=== PATIENT | female | born 1980 | race Caucasian/White ===

== ENCOUNTER 2017-04-12 01:38 | Observation (INO) ==
[2017-04-12] MEDS ORDERED: *HR* HYDROmorphone (PF) 1 MG/ML SYRINGE IVP ONE (02:02)
[2017-04-12] MEDS ORDERED: Ondansetron 4 MG/2 ML VIAL IVP ONE (02:02)
[2017-04-12] MEDS ORDERED: 0.9 % Sodium Chloride 1,000 ML IVC ONE (02:03)
[2017-04-12] MEDS ORDERED: Hyoscyamine 0.5 MG/ML MLS IVP ONE (02:03)
[2017-04-12] MEDS ORDERED: Ketorolac 15 MG/ML VIAL IVP ONE (02:03)
--- NOTE | 2017-04-12 02:07 | Emergency Department Note ---
Disposition Clinical Impression: Ileus, unspecified Abdominal pain Qualifiers: Abdominal location: unspecified location Qualified Code(s): R10.9 - Unspecified abdominal pain Disposition: Admitted As Inpatient Condition: Good Referrals: Ronna Dickens MD [Primary Care Provider] - Forms: ED Satisfaction Letter, Work/School Release Time of Disposition: 05:50 General Adult HPI - General Chief complaint: ED Abdominal Pain Stated complaint: "abd pain into back// Vomiting" Time Seen by Provider: 04/12/17 01:49 Source: patient Limitations: no limitations Nursing Notes Reviewed: Yes Vital Signs Reviewed: Yes - History of Present Illness HPI Narrative: 37 y/o female who reports eating a hamburger late in the evening and then developed sudden onset of RUQ abd pain with nausea. Denies prior history of this. PSH of hysterectomy. Has not vomited. No fever. Takes effexor and a BP medication. Nothing makes the pain better, moving makes it worse. No pain in the other areas of her abdomen. Radiation: non-radiation Pain Severity: severe Pain Scale: 10 Consistency: constant Treatments Prior to Arrival: none - Related Data Home Medications Medication Instructions Recorded Confirmed Atenolol [Tenormin] 50 mg PO DAILY 06/30/15 06/30/15 BuPROPion [Wellbutrin] 06/30/15 Melatonin [Melatonin] 06/30/15 Methocarbamol [Robaxin] 500 mg PO 06/30/15 06/30/15 Venlafaxine [Effexor] 110 mg PO 06/30/15 Previous Rx's Medication Instructions Recorded Albuterol Sulfate [Albuterol 2 puff IH Q4HR PRN #1 [id number] 12/18/15 Inhaler] Allergies Allergy/AdvReac Type Severity Reaction Status Date / Time levofloxacin [From Levaquin] Allergy Swelling Verified 04/12/17 01:48 of Lip/Tongue/Throat prochlorperazine Allergy See Verified 04/12/17 01:48 [From Compazine] Comments Sulfa (Sulfonamide Allergy Rash Verified 04/12/17 01:48 Antibiotics) All systems ED: reviewed and negative except as stated. Constitutional: Denies: fever ENT ED: Denies: throat pain Cardiovascular: Denies: chest pain Respiratory: Denies: cough Gastrointestinal: Reports: abdominal pain, nausea. Denies: vomiting, diarrhea Musculoskeletal: Denies: back pain Integumentary: Denies: rash Past Medical History - Past Medical History Medical history: Reports: no medical history Psychiatric history: Reports: no psych history - Social History Smoking Status: Never smoker Smokeless Tobacco Status: No Alcohol use: Reports: none Drug use: Reports: none Physical Exam - General Limitations: no limitations General appearance: alert - Head Head exam: atraumatic - Eye Eye exam: Present: normal appearance, PERRL - ENT ENT exam: normal exam - Neck Neck exam: Present: normal inspection - Chest Chest inspection: Present: normal inspection - Respiratory Respiratory exam: Present: normal lung sounds bilaterally - Cardiovascular Cardiovascular exam: Present: regular rate, normal rhythm - Abdominal Exam Abdominal exam: Present: soft, tenderness (RUQ only. Positive murphys sign.) - Extremities Exam Extremities exam: Present: normal inspection - Neurological Exam Neurological exam: Present: alert, oriented X3 - Psychiatric Psychiatric exam: Present: normal affect, normal mood Course Course Narrative: CT shows localized ileus. Leukocytosis is present. Pain improved but is still present after medications. No current vomiting. Negative gallbladder U/S and no LFT elevation or bili elevation. I called and spoke with Dr Daily who advised NPO with IVF and to give him a call if no improvement in [address] Garza who accepts the patient. Vital Signs Temperature 97.6 F 04/12/17 01:45 Pulse Rate 106 04/12/17 01:45 Respiratory Rate 20 04/12/17 01:45 Blood Pressure 123/87 04/12/17 01:45 O2 Sat by Pulse Oximetry 100 04/12/17 01:45 Temperature 97.6 F 04/12/17 01:45 Pulse Rate 106 04/12/17 01:45 Respiratory Rate 20 04/12/17 01:45 Blood Pressure 123/87 04/12/17 01:45 O2 Sat by Pulse Oximetry 100 04/12/17 01:45 Oxygen Delivery Oxygen Delivery Room Air Medical Decision Making - Medical Records Medical records reviewed: Yes I reviewed the patient's medical records. - Lab Data Lab results reviewed: Yes I reviewed the patient's lab results. Result diagrams: 04/12/17 01:58 04/12/17 01:58 Lab Results 04/12/17 04/12/17 04/12/17 Range/Units 01:58 01:58 01:58 WBC 19.7 H (4.3-11.1) K/mcL RBC 5.33 H (3.82-4.97) M/mcL Hgb 13.9 (11.5-15.4) g/dL Hct 43.8 (35.3-44.9) % MCV 82.2 L (83.0-100.0) fL MCH 26.1 L (28.0-33.3) pg MCHC 31.7 (31.6-35.5) g/dL RDW 14.0 (11.5-14.5) % Plt Count 335 (140-400) K/mcL MPV 10.2 (9.4-12.4) fL Immature Gran % 0.9 (0-4) % Seg Neutrophils % 76.9 % Lymphocytes % 16.7 % Monocytes % 4.3 % Eosinophils % 0.7 % Basophils % 0.5 % Neutrophils # 15.2 H (1.6-8.9) K/mcL Lymphocytes # 3.3 (0.6-4.6) K/mcL Monocytes # 0.9 (0.0-1.3) K/mcL Eosinophils # 0.1 (0.0-0.6) K/mcL Basophils # 0.1 (0.0-0.2) K/mcL Sodium (136-145) mEq/L Potassium (3.5-5.1) mEq/L Chloride (98-107) mEq/L Carbon Dioxide (23-29) mEq/L BUN (6-20) mg/dL Creatinine (0.60-1.20) mg/dL Est GFR ( Amer) (> 60) Est GFR (Non-Af Amer) (> 60) BUN/Creatinine Ratio (6-26) Glucose (70-105) mg/dL Calculated Osmolality (280-300) Calcium (8.6-10.3) mg/dL Total Bilirubin (0.3-1.0) mg/dL Direct Bilirubin (0.0-0.2) mg/dL Indirect Bilirubin (0.0-1.2) mg/dL AST (13-39) Units/L ALT (7-52) Units/L Alkaline Phosphatase (34-104) Units/L Serum Total Protein (6.4-8.9) g/dL Albumin (3.5-5.7) g/dL Globulin (2.4-3.5) g/dL Albumin/Globulin Ratio (1.1-2.2) Lipase (11-82) Units/L Urine Color Yellow (Yellow) Urine Clarity Clear (Clear) Urine pH 6.0 (5.0-8.0) pH Units Ur Specific [place] > 1.030 H (1.010-1.025) Urine Protein Negative (Neg-Trace) mg/dL Urine Glucose (UA) Normal (Normal) mg/dL Urine Ketones Negative (Negative) mg/dL Urine Blood Negative (Negative) Urine Nitrite Negative (Negative) Urine Bilirubin Negative (Negative) Urine Urobilinogen Normal (Normal) mg/dL Ur Leukocyte Esterase Negative (Negative) Ur Culture Indicated? NO (NO) Urine Test Negative (Negative) 04/12/17 Range/Units 01:58 WBC (4.3-11.1) K/mcL RBC (3.82-4.97) M/mcL Hgb (11.5-15.4) g/dL Hct (35.3-44.9) % MCV (83.0-100.0) fL MCH (28.0-33.3) pg MCHC (31.6-35.5) g/dL RDW (11.5-14.5) % Plt Count (140-400) K/mcL MPV (9.4-12.4) fL Immature Gran % (0-4) % Seg Neutrophils % % Lymphocytes % % Monocytes % % Eosinophils % % Basophils % % Neutrophils # (1.6-8.9) K/mcL Lymphocytes # (0.6-4.6) K/mcL Monocytes # (0.0-1.3) K/mcL Eosinophils # (0.0-0.6) K/mcL Basophils # (0.0-0.2) K/mcL Sodium 135 L (136-145) mEq/L Potassium 4.0 (3.5-5.1) mEq/L Chloride 101 (98-107) mEq/L Carbon Dioxide 25 (23-29) mEq/L BUN 18 (6-20) mg/dL Creatinine 0.81 (0.60-1.20) mg/dL Est GFR ( Amer) > 60 (> 60) Est GFR (Non-Af Amer) > 60 (> 60) BUN/Creatinine Ratio 22 (6-26) Glucose 148 H (70-105) mg/dL Calculated Osmolality 285 (280-300) Calcium 9.9 (8.6-10.3) mg/dL Total Bilirubin 0.2 L (0.3-1.0) mg/dL Direct Bilirubin 0.1 (0.0-0.2) mg/dL Indirect Bilirubin 0.1 (0.0-1.2) mg/dL AST 15 (13-39) Units/L ALT 24 (7-52) Units/L Alkaline Phosphatase 74 (34-104) Units/L Serum Total Protein 7.4 (6.4-8.9) g/dL Albumin 4.7 (3.5-5.7) g/dL Globulin 2.7 (2.4-3.5) g/dL Albumin/Globulin Ratio 1.7 (1.1-2.2) Lipase 19 (11-82) Units/L Urine Color (Yellow) Urine Clarity (Clear) Urine pH (5.0-8.0) pH Units Ur Specific [place] (1.010-1.025) Urine Protein (Neg-Trace) mg/dL Urine Glucose (UA) (Normal) mg/dL Urine Ketones (Negative) mg/dL Urine Blood (Negative) Urine Nitrite (Negative) Urine Bilirubin (Negative) Urine Urobilinogen (Normal) mg/dL Ur Leukocyte Esterase (Negative) Ur Culture Indicated? (NO) Urine Test (Negative) - Radiology Data Radiology results reviewed: Yes I reviewed the patient's radiology results. Attestation Statement - Attestation Attestation: I, Wilder Vickers DO, examined this patient [id number] and my medical decision-making was reviewed with Dr. Pranav Alcala, Resident Physician. I agree with the documented findings, disposition and treatment plan as described except to the extent set forth below. Please see my progress notes for details. 37-year-old female presents emergency room with acute onset of right upper quadrant abdominal pain just after eating a hamburger. Patient denies any other trauma or injury. She has no history of gallbladder related disease or illness. She has a family member was had gallbladder problems in the past as well. Patient denies any fevers or chills chest pain shortness of breath headache vision changes. She has had nausea and vomiting since the onset of the symptoms. Denies any diarrhea. Patient has never had any like this before. She has had a total hysterectomy in her abdomen but has not otherwise had no other symptoms. Vital signs are stable on presentation. Patient does appear to be in some moderate distress. Lungs are clear heart is regular. Patient has reproducible right upper quadrant tenderness to palpation. She has no tenderness in the left upper quadrant and bilateral lower quadrants of the abdomen. There is no guarding or rigidity no peritoneal like symptoms at this time. Patient will have ultrasound completed. Bedside ultrasound does not show any acute signs of free fluid or inflammation of the gallbladder this point. Definitive imaging modality will be resulted. Symptomatic control started this time of pain medication. Disposition will be determined. See detailed documentation of the physical exam, medical intervention, medical decision-making and disposition of the resident physician's note. Note critical care applied to this patient's treatment course. 0500 Patient found to have an ileus versus early small bowel obstruction. Consultation placed to the on-call surgeon. Recommended hospitalist admission. Patient is otherwise clinically stable. Will be admitted for symptomatic control and observation.
[2017-04-12 02:10] LABS: Bilirubin,Urine Negative (Negative); Blood,Urine Negative (Negative); Clarity,Urine Clear (Clear); Color,Urine Yellow (Yellow); Glucose,Urine (UA) Normal (Normal); Ketones,Urine Negative (Negative); Leukocyte Esterase,Urine Negative (Negative); Nitrite,Urine Negative (Negative); Protein,Urine Negative (Neg-Trace); Specific Gravity,Urine > 1.030 (1.010-1.025); Urobilinogen,Urine Normal (Normal)
[2017-04-12 02:12] LABS: Basophils # 0.1 K/mcL (0.0-0.2); Basophils % 0.5 %; Eosinophils # 0.1 K/mcL (0.0-0.6); Eosinophils % 0.7 %; Hematocrit 43.8 % (35.3-44.9); Hemoglobin 13.9 g/dL (11.5-15.4); Immature Granulocytes % 0.9 % (0-4); Lymphocytes # 3.3 K/mcL (0.6-4.6); Lymphocytes % 16.7 %; Mean Corpuscular HGB Conc 31.7 g/dL (31.6-35.5); Mean Corpuscular Hemoglobin 26.1 pg (28.0-33.3); Mean Corpuscular Volume 82.2 fL (83.0-100.0); Mean Platelet Volume 10.2 fL (9.4-12.4); Monocytes # 0.9 K/mcL (0.0-1.3); Monocytes % 4.3 %; Neutrophils # 15.2 K/mcL (1.6-8.9); Platelet Count 335 K/mcL (140-400); Red Blood Count 5.33 M/mcL (3.82-4.97); Segmented Neutrophils % 76.9 %
[2017-04-12] MEDS ORDERED: *HR* FentaNYL (PF) 100 MCG/2 ML VIAL IVP ONE ×2 (02:14→05:10)
[2017-04-12 02:30] LABS: Alanine Aminotransferase 24 Units/L (7-52); Albumin 4.7 g/dL (3.5-5.7); Albumin/Globulin Ratio 1.7 (1.1-2.2); Alkaline Phosphatase 74 Units/L (34-104); Aspartate Amino Transferase 15 Units/L (13-39); BUN/Creatinine Ratio 22 (6-26); Bilirubin,Direct 0.1 mg/dL (0.0-0.2); Bilirubin,Indirect 0.1 mg/dL (0.0-1.2); Bilirubin,Total 0.2 mg/dL (0.3-1.0); Blood Urea Nitrogen 18 mg/dL (6-20); Calcium 9.9 mg/dL (8.6-10.3); Carbon Dioxide 25 mEq/L (23-29); Chloride 101 mEq/L (98-107); Globulin 2.7 g/dL (2.4-3.5); Glucose 148 mg/dL (70-105); Lipase 19 Units/L (11-82); Osmolality,Calculated 285 (280-300); Sodium 135 mEq/L (136-145); Total Protein 7.4 g/dL (6.4-8.9); eGFR For African Americans > 60 (> 60); eGFR For Non-African Americans > 60 (> 60)
[2017-04-12] MEDS ORDERED: 0.9 % Sodium Chloride 1,000 ML IVC SCH (05:45)
[2017-04-12] MEDS ORDERED: Naloxone 0.4 MG/ML INJ IVP PRN (07:43)
[2017-04-12] MEDS ORDERED: *HR* HYDROcodone/Acet 5/325 mg TABLET PO PRN (07:43)
[2017-04-12] MEDS ORDERED: Ondansetron 4 MG/2 ML VIAL ONE (07:50)
[2017-04-12] MEDS: Ondansetron 4 MG/2 ML VIAL IVP PRN ×3 (08:02→22:55)
[2017-04-12] MEDS: *HR* Promethazine 25 MG/ML VIAL IVP PRN ×3 (08:04→23:50)
[2017-04-12] MEDS: 0.9 % Sodium Chloride 1,000 ML IVC SCH ×3 (08:06→22:55)
--- NOTE | 2017-04-12 10:01 | Internal Med History&Physical ---
Date of Encounter: 04/12/17 Time of Encounter: 08:00 Assessment and Plan (1) SBO (small bowel obstruction) Current visit: Yes Status: Acute Place the pt into Med Surg for observation Reviwed CT of abd showed partial SBO vs Ileus NPO for now IV hydration Surgery consulted No need of NG tube at this point continue symptomatic and supportive care Reviewed Labs - Normal LFT's and Lipase (2) Ileus, unspecified Current visit: Yes Status: Acute (3) Abdominal pain Current visit: Yes Status: Acute Qualifiers: Abdominal location: periumbilical Qualified Code(s): R10.33 - Periumbilical pain (4) Intractable nausea and vomiting Current visit: Yes Status: Acute Continue symptomatic and supportive care Qualifiers: Vomiting type: unspecified Qualified Code(s): R11.2 - Nausea with vomiting , unspecified (5) Anxiety Current visit: Yes Status: Acute Resumed home meds (6) HTN (hypertension) Current visit: Yes Status: Acute hold PO meds will give IV Hdyralazine if SBP > 160 Qualifiers: Hypertension type: essential hypertension Qualified Code(s): I10 - Essential (primary) hypertension Internal Medicine - H&P: HPI Chief complaint: Abdominal pain and N/V Admitted From: Emergency Dept Plans for Post Hospital Care: Home History of present illness: Ms. Leon is a 37 year old female with known Anxiety and HTN pt who presented to ER with genesis umbelical abdominal pain associated with intractable nausea and vomiting started y/d. She denied any sick contacts at home. She denied eating any unusual food / food poisoning. She denied any constipation diarrhea. Had multiple non bilious vomiting last night. Still feel nauseated. Her CT of Abd showed ileus and partial SBO. Her abdominal pain is located periumbelical region and radiating to her mid back. Past Med Surg Social Fam HX - Past Medical History Medical history: no medical history Psychiatric history: no psych history - Past Surgical History Surgical History: hysterectomy - Social History Smoking Status: Never smoker Smokeless Tobacco Status: No Alcohol use: none Drug use: none - Family History Father Living Status: Still Living Hx Family Cancer: Yes (thyroid) Maternal Hx Family GI Disorders: Yes (Aunt have pancreatic cancer) Internal Medicine - H&P: Meds Atenolol [Tenormin] 50 mg PO DAILY 06/30/15 [History] Methocarbamol [Robaxin] 500 mg PO DAILY 06/30/15 [History] BuPROPion XL (24 HR) [Wellbutrin XL] 150 mg PO DAILY 04/12/17 [History] Venlafaxine XR (24 HR) [Effexor XR] 37.5 mg PO DAILY 04/12/17 [History] Venlafaxine XR (24 HR) [Effexor XR] 75 mg PO DAILY 04/12/17 [History] 3 Allergy/AdvReac Type Severity Reaction Status Date / Time levofloxacin [From Levaquin] Allergy Swelling Verified 04/12/17 01:48 of Lip/Tongue/Throat prochlorperazine Allergy See Verified 04/12/17 01:48 [From Compazine] Comments Sulfa (Sulfonamide Allergy Rash Verified 04/12/17 01:48 Antibiotics) All Systems PM: A 10-system review of systems was performed and is negative for pertinent findings except as documented above in the HPI. Review of systems: All the systems are reviewed everything is benign except the systems and symptoms I mentioned in the history of present illness - Constitutional Vitals: Temp Pulse Resp BP Pulse Ox 97.6 F 80 16 111/59 98 04/12/17 01:45 04/12/17 08:40 04/12/17 08:40 04/12/17 08:40 04/12/17 06:30 General appearance: Present: mild distress (with abdominal buddy), A&O X 3, answers questions appropriately - Head Head exam: Present: atraumatic, normal inspection - Neck Neck exam general surgery: Present: supple - Respiratory Respiratory exam: Present: decreased breath sounds. Absent: rales, respiratory distress, rhonchi, wheezes - Cardiovascular Cardiovascular exam: Present: RRR, +S1, +S2. Absent: tachycardia - GI/Abdominal GI/Abdominal exam: Present: normal bowel sounds, soft, tenderness (epigastric and genesis umbelical abdominal pain). Absent: rebound, rigid - Extremities Exam Extremities exam: Absent: calf tenderness, pedal edema, tenderness - Back Exam Back exam: Absent: CVA tenderness (L), CVA tenderness (R) - Neurological Exam Neurological exam: Present: alert, oriented X3 - Psychiatric Psychiatric exam: Present: normal affect, normal mood - Skin Skin exam: Absent: rash Internal Med - H&P Results - Labs CBC & Chem 7: 04/12/17 01:58 04/12/17 01:58
[2017-04-12] MEDS: Pantoprazole 40 MG VIAL IVP SCH (11:17)
[2017-04-12] MEDS: *HR* FentaNYL (PF) 100 MCG/2 ML VIAL IVP PRN ×3 (11:17→23:50)
--- NOTE | 2017-04-12 11:25 | General Surgery Consult Note ---
<Kylie Ball Neal - Last Filed: 04/12/17 11:22> Date of Encounter: 04/12/17 Time of Encounter: 10:45 Assessment and Plan (2) Abdominal pain Current Visit: Yes Status: Acute Unclear etiology at this point NPO IV fluids- 125ml/hour Check HIDA scan to further investigate for biliary dyskinesia Supportive care and pain control GI/DVT prophylaxis Ambulate hallways TID Incentive Spirometer every 1 hour while awake Serial abdominal exams Repeat am labs Surgery will continue to follow to assess progress and make recommendations Qualifiers: Abdominal location: periumbilical Qualified Code(s): R10.33 - Periumbilical pain (3) Intractable nausea and vomiting Current Visit: Yes Status: Acute Unclear etiology at this point NPO Agree with no NG tube at this time IV fluids- 125ml/hour Check HIDA scan to further investigate for biliary dyskinesia Supportive care and pain control GI/DVT prophylaxis Ambulate hallways TID Incentive Spirometer every 1 hour while awake Serial abdominal exams Repeat am labs Qualifiers: Vomiting type: unspecified Qualified Code(s): R11.2 - Nausea with vomiting , unspecified (4) Anxiety Current Visit: Yes Status: Chronic Management per hospitalist Continue home medication regimen (5) HTN (hypertension) Current Visit: Yes Status: Chronic Management per hospitalist Continue home medication regimen Qualifiers: Hypertension type: essential hypertension Qualified Code(s): I10 - Essential (primary) hypertension (6) DVT prophylaxis Current Visit: Yes Status: Acute Ambulate hallways 3 times a day EPCDs to bilateral lower extremities for DVT prophylaxis History of Present Illness Consult date: 04/12/17 Reason for consult: abdominal pain Requesting physician: Kurtis Peters History of present illness: Mrs. Leon is a 37 year old female with a past medical history significant for hypertension, obesity, anxiety, GERD. She presents to the emergency department after having sudden onset of epigastric and right upper quadrant abdominal pain which started last evening. She states that the pain was severe and constant and was followed by multiple episodes of nausea and vomiting. She has never experienced pain like this in the past. She did attempt to take Mylanta but states that this did not help. She states that the pain is much better at this point. She denies any hematemesis or coffee-ground emesis. She states that her last bowel movement was at 10 PM last evening. She denies any diarrhea or constipation. She denies any melena or hematochezia. She typically has a bowel movement every 2-3 days. She denies any recent sick contacts. She denies any fevers or chills. Denies any shortness of breath or chest pain. She denies any difficulty with urination. She has had a CAT scan evaluation and ultrasound the gallbladder complete. We have been asked to see and evaluate the patient for further recommendations. Past Med Surg Social Fam HX - Past Medical History Source: patient, old records reviewed Medical history: GERD, hypertension Psychiatric history: anxiety - Past Surgical History Surgical History: hysterectomy (with single oopherectomy), other ([place] teeth extraction) - Social History Smoking Status: Never smoker Smokeless Tobacco Status: No Alcohol use: none Drug use: none Current living situation: Home - Independent Activity Level: Independent ambulation - Family History Father Living Status: Still Living Hx Family Cancer: Yes (skin) Hx Family Endocrine Disorder: Yes (Diabetes Mellitus) Maternal Living Status: Cause of : Pancreatic cancer Hx Family Cancer: Yes (Maternal Aunt hx of pancreatic CA ( in her 40's)) Mother Living Status: Still Living Hx Family Cancer: Yes (Thyroid cancer) Paternal Living Status: Cause of : Colon cancer Hx Family Cancer: Yes (Colon cancer) Daughter Hx Family Respiratory Disorders: Yes (Asthma, Sleep apnea) Hx Family Neurologic Disorders: Yes (Arnold Chiari Malformation) Medications and Allergies Atenolol [Tenormin] 50 mg PO DAILY 06/30/15 [History] Methocarbamol [Robaxin] 500 mg PO DAILY 06/30/15 [History] BuPROPion XL (24 HR) [Wellbutrin XL] 150 mg PO DAILY 04/12/17 [History] Venlafaxine XR (24 HR) [Effexor XR] 37.5 mg PO DAILY 04/12/17 [History] Venlafaxine XR (24 HR) [Effexor XR] 75 mg PO DAILY 04/12/17 [History] 3 Allergy/AdvReac Type Severity Reaction Status Date / Time levofloxacin [From Levaquin] Allergy Swelling Verified 04/12/17 01:48 of Lip/Tongue/Throat prochlorperazine Allergy See Verified 04/12/17 01:48 [From Compazine] Comments Sulfa (Sulfonamide Allergy Rash Verified 04/12/17 01:48 Antibiotics) Review of Systems All systems PM: reviewed and no additional remarkable complaints except as stated (in the HPI) All systems PM: The remainder of the systems were reviewed and are negative General Surgery Exam Initial Vital Signs Temp Pulse Resp BP Pulse Ox 97.6 F 106 20 123/87 100 04/12/17 01:45 04/12/17 01:45 04/12/17 01:45 04/12/17 01:45 04/12/17 01:45 - General physical appearance well developed, well nourished, no distress - Eyes normal ocular movement - ENT normal mucosa, atraumatic, normocephalic - Neck trachea midline - Respiratory normal respiratory effort, clear to auscultation - Cardiovascular Cardiovascular exam: Present: RRR - Abdomen Abdomen general surgery: Present: bowel sounds present, soft, tender Abdominal Tenderness: Present: epigastic, RUQ - Integumentary Integumentary general surgery: Present: warm and dry - Neurologic Present: CN 2-12 grossly intact - Musculoskeletal Present: normal gait, normal posture - Psychiatric Psychiatric general surgery: Present: appropriate, oriented to person, oriented to place, oriented to time, speech is normal, memory intact Exam Initial Vital Signs Temp Pulse Resp BP Pulse Ox 97.6 F 106 20 123/87 100 04/12/17 01:45 04/12/17 01:45 04/12/17 01:45 04/12/17 01:45 04/12/17 01:45 Results - Labs 04/12/17 01:58 04/12/17 01:58 Abnormal lab results WBC 19.7 K/mcL (4.3-11.1) H 04/12/17 01:58 RBC 5.33 M/mcL (3.82-4.97) H 04/12/17 01:58 MCV 82.2 fL (83.0-100.0) L 04/12/17 01:58 MCH 26.1 pg (28.0-33.3) L 04/12/17 01:58 Neutrophils # 15.2 K/mcL (1.6-8.9) H 04/12/17 01:58 Sodium 135 mEq/L (136-145) L 04/12/17 01:58 Glucose 148 mg/dL (70-105) H 04/12/17 01:58 Total Bilirubin 0.2 mg/dL (0.3-1.0) L 04/12/17 01:58 Ur Specific [place] > 1.030 (1.010-1.025) H 04/12/17 01:58 All other labs normal. - Imaging CT scan - abdomen: report reviewed CT scan - pelvis: report reviewed US - abdomen: report reviewed Additional studies: Gallbladder Ultrasound 04/12/17 02:02 IMPRESSION: 1. No cholelithiasis or sonographic evidence for acute cholecystitis. 2. Fatty liver versus diffuse hepatocellular disease. D/ / Estuardo Gross MD / Estuardo Gross MD Interpreting Provider: Estuardo Gross MD Abdomen/Pelvis CT 04/12/17 03:42 IMPRESSION: Localized ileus versus partial small bowel obstruction. D/ / Estuardo Gross MD / Estuardo Gross MD Interpreting Provider: Estuardo Gross MD Consult Discharge Plan - Plan Referrals: Ronna Dickens MD [Primary Care Provider] - - Attending Attestation For this encounter, I have reviewed the ACCOUNTING SOFTWARE SPECIALIST or PA documentation, treatment plan, and medical decision making; and I have had face to face time with this patient. <Tristan Hdz M - Last Filed: 04/13/17 13:04> Date of Encounter: 04/12/17 Review of Systems All systems PM: The remainder of the systems were reviewed and are negative General Surgery Exam Initial Vital Signs Temp Pulse Resp BP Pulse Ox 97.6 F 106 20 123/87 100 04/12/17 01:45 04/12/17 01:45 04/12/17 01:45 04/12/17 01:45 04/12/17 01:45 Exam Initial Vital Signs Temp Pulse Resp BP Pulse Ox 97.6 F 106 20 123/87 100 04/12/17 01:45 04/12/17 01:45 04/12/17 01:45 04/12/17 01:45 04/12/17 01:45 Results - Labs 04/13/17 04:04 04/13/17 04:04 Abnormal lab results MCH 26.2 pg (28.0-33.3) L 04/13/17 04:04 MCHC 31.4 g/dL (31.6-35.5) L 04/13/17 04:04 Nucleated RBCs/100 WBC 0.2 /100 WBC (0) H 04/13/17 04:04 Chloride 110 mEq/L (98-107) H 04/13/17 04:04 POC Glucose 97 (58-89) H 04/13/17 00:21 Calcium 8.5 mg/dL (8.6-10.3) L 04/13/17 04:04 Total Bilirubin 0.2 mg/dL (0.3-1.0) L 04/12/17 01:58 Ur Specific [place] > 1.030 (1.010-1.025) H 04/12/17 01:58 Diabetes panel 04/13/17 Range/Units 04:04 Sodium 140 (136-145) mEq/L Potassium 4.2 (3.5-5.1) mEq/L Chloride 110 H (98-107) mEq/L Carbon Dioxide 23 (23-29) mEq/L BUN 13 (6-20) mg/dL Creatinine 0.75 (0.60-1.20) mg/dL Glucose 86 (70-105) mg/dL Calcium 8.5 L (8.6-10.3) mg/dL Calcium panel 04/13/17 Range/Units 04:04 Calcium 8.5 L (8.6-10.3) mg/dL Phosphorus 3.0 (2.7-4.5) mg/dL Pituitary panel 04/13/17 Range/Units 04:04 Sodium 140 (136-145) mEq/L Potassium 4.2 (3.5-5.1) mEq/L Chloride 110 H (98-107) mEq/L Carbon Dioxide 23 (23-29) mEq/L BUN 13 (6-20) mg/dL Creatinine 0.75 (0.60-1.20) mg/dL Glucose 86 (70-105) mg/dL Calcium 8.5 L (8.6-10.3) mg/dL Adrenal panel 04/13/17 Range/Units 04:04 Sodium 140 (136-145) mEq/L Potassium 4.2 (3.5-5.1) mEq/L Chloride 110 H (98-107) mEq/L Carbon Dioxide 23 (23-29) mEq/L BUN 13 (6-20) mg/dL Creatinine 0.75 (0.60-1.20) mg/dL Glucose 86 (70-105) mg/dL Calcium 8.5 L (8.6-10.3) mg/dL All other labs normal. - Attending Attestation I personally reviewed the evaluation and assessment and agree with the above plan. This does not appear to be a partial bowel obstruction. Patient had episode of nausea and vomiting over the past 24 hours. She points to the epigastric as location of her pain. She is not feeling currently nauseous but the pain appears to be coming back on my current exam. Agree with gallbladder scan to see whether or not her pain is biliary dyskinesia in nature
[2017-04-12] MEDS ORDERED: Venlafaxine XR (24 HR) 37.5 MG CAP.ER.24H PO SCH (21:00)
[2017-04-12] MEDS ORDERED: BuPROPion XL (24 HR) 150 MG TABLET PO SCH (21:00)
[2017-04-12] MEDS ORDERED: Venlafaxine XR (24 HR) 75 MG CAP.ER.24H PO SCH (21:00)
[2017-04-12] MEDS: Acetaminophen 325 MG TABLET PO PRN (21:56)
[2017-04-13 05:27] LABS: Basophils % 0.4 %; Eosinophils # 0.1 K/mcL (0.0-0.6); Eosinophils % 1.4 %; Hematocrit 38.5 % (35.3-44.9); Hemoglobin 12.1 g/dL (11.5-15.4); Immature Granulocytes % 1.3 % (0-4); Lymphocytes # 2.1 K/mcL (0.6-4.6); Mean Corpuscular HGB Conc 31.4 g/dL (31.6-35.5); Mean Corpuscular Hemoglobin 26.2 pg (28.0-33.3); Mean Corpuscular Volume 83.3 fL (83.0-100.0); Mean Platelet Volume 11.1 fL (9.4-12.4); Monocytes # 0.5 K/mcL (0.0-1.3); Monocytes % 5.2 %; Neutrophils # 7.1 K/mcL (1.6-8.9); Nucleated Red Blood Cells 0.2 /100 WBC (0); Platelet Count 240 K/mcL (140-400); Red Blood Count 4.62 M/mcL (3.82-4.97); Red Cell Distribution Width 14.4 % (11.5-14.5); Segmented Neutrophils % 70.7 %
[2017-04-13 05:57] LABS: BUN/Creatinine Ratio 17 (6-26); Blood Urea Nitrogen 13 mg/dL (6-20); Calcium 8.5 mg/dL (8.6-10.3); Carbon Dioxide 23 mEq/L (23-29); Chloride 110 mEq/L (98-107); Glucose 86 mg/dL (70-105); Osmolality,Calculated 289 (280-300); Potassium 4.2 mEq/L (3.5-5.1); Sodium 140 mEq/L (136-145); eGFR For African Americans > 60 (> 60); eGFR For Non-African Americans > 60 (> 60)
[2017-04-13] MEDS: Pantoprazole 40 MG VIAL IVP SCH (08:18)
[2017-04-13] MEDS: Acetaminophen 325 MG TABLET PO PRN (08:27)
[2017-04-13] MEDS: Ondansetron 4 MG/2 ML VIAL IVP PRN (08:28)
[2017-04-13] MEDS ORDERED: Venlafaxine XR (24 HR) 75 MG CAP.ER.24H PO SCH (09:00)
[2017-04-13] MEDS ORDERED: Venlafaxine XR (24 HR) 37.5 MG CAP.ER.24H PO SCH (09:00)
[2017-04-13] MEDS ORDERED: BuPROPion XL (24 HR) 150 MG TABLET PO SCH (09:00)
--- NOTE | 2017-04-13 09:35 | General Surgery Progress Note ---
<Kylie Ball - Last Filed: 04/13/17 09:33> Date of Encounter: 04/13/17 Time of Encounter: 09:15 - Assessment and Plan (1) Biliary dyskinesia Current Visit: Yes Status: Acute NPO IV fluids- 75ml/hour Risks, benefits, alternatives explained to the patient and we will plan to proceed with laparoscopic cholecystectomy with Dr. Hdz in the next 24 hours. (2) Abdominal pain Current Visit: Yes Status: Acute Suspect secondary to biliary dyskinesia based upon HIDA scan results. NPO IV fluids- 75ml/hour HIDA- EF 35% and recreation of symptoms Supportive care and pain control GI/DVT prophylaxis Ambulate hallways TID Incentive Spirometer every 1 hour while awake Serial abdominal exams Risks, benefits, alternatives explained to the patient and we will plan to proceed with laparoscopic cholecystectomy with Dr. Hdz in the next 24 hours. Qualifiers: Abdominal location: periumbilical Qualified Code(s): R10.33 - Periumbilical pain (3) Intractable nausea and vomiting Current Visit: Yes Status: Acute NPO IV fluids- 75ml/hour HIDA- EF 35% and recreation of symptoms Supportive care and pain control GI/DVT prophylaxis Ambulate hallways TID Incentive Spirometer every 1 hour while awake Serial abdominal exams Risks, benefits, alternatives explained to the patient and we will plan to proceed with laparoscopic cholecystectomy with Dr. Hdz in the next 24 hours. Qualifiers: Vomiting type: unspecified Qualified Code(s): R11.2 - Nausea with vomiting , unspecified (4) Anxiety Current Visit: Yes Status: Chronic Management per hospitalist Continue home medication regimen (5) HTN (hypertension) Current Visit: Yes Status: Chronic Management per hospitalist Continue home medication regimen Qualifiers: Hypertension type: essential hypertension Qualified Code(s): I10 - Essential (primary) hypertension (6) DVT prophylaxis Current Visit: Yes Status: Acute Ambulate hallways 3 times a day EPCDs to bilateral lower extremities for DVT prophylaxis Subjective Patient reports: no new complaints, voiding w/o difficulty, flatus, bowel movement, diarrhea, nausea, afebrile, other (HIDA scan complete this morning- patient denies any pain but had onset of nausea with injection (no relief with zofran)) Objective Vital Signs - Last 8 Hours Temp Pulse Resp BP Pulse Ox 04/13/17 08:24 98.5 F 87 15 119/73 98 04/13/17 04:57 98.1 F 96 14 118/70 95 Intake and Output 04/12/17 04/13/17 04/13/17 23:59 07:59 15:59 Intake Total 1000 / 1000 0 / 0 0 / 0 Output Total 450 / 450 600 / 600 175 / 175 Balance 550 / 550 -600 / -600 -175 / -175 Intake: IV Fluids 1000 / 1000 0.9 % Sodium Chloride 1,000 ML 1000 / 1000 @ 125 mls/hr IVC .Q8H [facility] Rx#: [id number] Oral 0 / 0 0 / 0 0 / 0 Output: Urine 450 / 450 600 / 600 175 / 175 Other: Meal NPO NPO Percent of Meal Consumed 0% Weight 92.986 kg Blood Glucose* 100 97 - General physical appearance well developed, well nourished, no distress, obese - Eyes normal ocular movement - ENT normal mucosa, atraumatic, normocephalic - Neck Neck exam: trachea midline - Respiratory normal respiratory effort, clear to auscultation - Cardiovascular Cardiovascular exam: Present: RRR - Abdomen Abdomen: Present: bowel sounds present, soft, non tender - Integumentary no rash - Neurologic CN 2-12 grossly intact - Musculoskeletal normal gait, normal posture - Psychiatric oriented to time, oriented to person, oriented to place, speech is normal, memory intact - Labs 04/13/17 04:04 04/13/17 04:04 Diabetes panel 04/13/17 Range/Units 04:04 Sodium 140 (136-145) mEq/L Potassium 4.2 (3.5-5.1) mEq/L Chloride 110 H (98-107) mEq/L Carbon Dioxide 23 (23-29) mEq/L BUN 13 (6-20) mg/dL Creatinine 0.75 (0.60-1.20) mg/dL Glucose 86 (70-105) mg/dL Calcium 8.5 L (8.6-10.3) mg/dL Calcium panel 04/13/17 Range/Units 04:04 Calcium 8.5 L (8.6-10.3) mg/dL Phosphorus 3.0 (2.7-4.5) mg/dL Pituitary panel 04/13/17 Range/Units 04:04 Sodium 140 (136-145) mEq/L Potassium 4.2 (3.5-5.1) mEq/L Chloride 110 H (98-107) mEq/L Carbon Dioxide 23 (23-29) mEq/L BUN 13 (6-20) mg/dL Creatinine 0.75 (0.60-1.20) mg/dL Glucose 86 (70-105) mg/dL Calcium 8.5 L (8.6-10.3) mg/dL Adrenal panel 04/13/17 Range/Units 04:04 Sodium 140 (136-145) mEq/L Potassium 4.2 (3.5-5.1) mEq/L Chloride 110 H (98-107) mEq/L Carbon Dioxide 23 (23-29) mEq/L BUN 13 (6-20) mg/dL Creatinine 0.75 (0.60-1.20) mg/dL Glucose 86 (70-105) mg/dL Calcium 8.5 L (8.6-10.3) mg/dL - Imaging Additional Studies: Liver Scan Nuclear Medicine 04/13/17 06:00 IMPRESSION: Low gallbladder ejection fraction of only 35% suggests chronic cholecystitis. D/ / Emanuel Green MD / Emanuel Green MD Interpreting Provider: Emanuel Green MD Consult Discharge Plan - Plan Referrals: Ronna Dickens MD [Primary Care Provider] - - Attending Attestation For this encounter, I have reviewed the MANAGER CARE MANAGEMENT or PA documentation, treatment plan, and medical decision making; and I have had face to face time with this patient. <Tristan Hdz - Last Filed: 04/13/17 13:04> Date of Encounter: 04/13/17 Objective Vital Signs - Last 8 Hours Temp Pulse Resp BP Pulse Ox 04/13/17 11:44 107 15 132/80 98 04/13/17 08:24 98.5 F 87 15 119/73 98 Intake and Output 04/12/17 04/13/17 04/13/17 23:59 07:59 15:59 Intake Total 1000 / 1000 0 / 0 0 / 0 Output Total 450 / 450 600 / 600 280 / 280 Balance 550 / 550 -600 / -600 -280 / -280 Intake: IV Fluids 1000 / 1000 0.9 % Sodium Chloride 1,000 ML 1000 / 1000 @ 125 mls/hr IVC .Q8H [facility] Rx#: [id number] Oral 0 / 0 0 / 0 0 / 0 Output: Urine 450 / 450 600 / 600 275 / 275 Estimated Blood Loss 5 / 5 Other: Meal NPO NPO Percent of Meal Consumed 0% Weight 92.986 kg Blood Glucose* 100 97 - Labs 04/13/17 04:04 04/13/17 04:04 Diabetes panel 04/13/17 Range/Units 04:04 Sodium 140 (136-145) mEq/L Potassium 4.2 (3.5-5.1) mEq/L Chloride 110 H (98-107) mEq/L Carbon Dioxide 23 (23-29) mEq/L BUN 13 (6-20) mg/dL Creatinine 0.75 (0.60-1.20) mg/dL Glucose 86 (70-105) mg/dL Calcium 8.5 L (8.6-10.3) mg/dL Calcium panel 04/13/17 Range/Units 04:04 Calcium 8.5 L (8.6-10.3) mg/dL Phosphorus 3.0 (2.7-4.5) mg/dL Pituitary panel 04/13/17 Range/Units 04:04 Sodium 140 (136-145) mEq/L Potassium 4.2 (3.5-5.1) mEq/L Chloride 110 H (98-107) mEq/L Carbon Dioxide 23 (23-29) mEq/L BUN 13 (6-20) mg/dL Creatinine 0.75 (0.60-1.20) mg/dL Glucose 86 (70-105) mg/dL Calcium 8.5 L (8.6-10.3) mg/dL Adrenal panel 04/13/17 Range/Units 04:04 Sodium 140 (136-145) mEq/L Potassium 4.2 (3.5-5.1) mEq/L Chloride 110 H (98-107) mEq/L Carbon Dioxide 23 (23-29) mEq/L BUN 13 (6-20) mg/dL Creatinine 0.75 (0.60-1.20) mg/dL Glucose 86 (70-105) mg/dL Calcium 8.5 L (8.6-10.3) mg/dL - Attending Attestation I reviewed this assessment and evaluation and agree with the above plan. HIDA scan study showed an ejection fraction of 34% and the patient did have some mild recurrent pain but not as severe yet in the same location as her epigastric pain. I think she has biliary dyskinesia and we will proceed with a laparoscopic cholecystectomy. Risks and benefits have been discussed with the patient and she agrees to the above plan.
[2017-04-13] MEDS ORDERED: 0.9 % Sodium Chloride 1,000 ML IVC SCH (09:41)
[2017-04-13] MEDS: *HR* Promethazine 25 MG/ML VIAL IVP PRN (09:49)
--- NOTE | 2017-04-13 10:47 | Anesthesia Evaluation PreOp ---
Date of Encounter: 04/13/17 Time of Encounter: 11:53 - Past History Planned Operation: lap cholecystectomy Cardiac History: HTN Pulmonary History: Denies Any Significant HX BILLING TYPIST History: Other (anxiety) Other Medical History: GERD Anesthesia History: No Prior Anesthetic Complications, Past Anesthesia (widsom teeth, hysterectomy) Alcohol Use: none Drug use: none Medications and Allergies Atenolol [Tenormin] 50 mg PO DAILY 06/30/15 [History] Methocarbamol [Robaxin] 500 mg PO DAILY 06/30/15 [History] BuPROPion XL (24 HR) [Wellbutrin XL] 150 mg PO DAILY 04/12/17 [History] Venlafaxine XR (24 HR) [Effexor XR] 37.5 mg PO DAILY 04/12/17 [History] Venlafaxine XR (24 HR) [Effexor XR] 75 mg PO DAILY 04/12/17 [History] 3 Allergy/AdvReac Type Severity Reaction Status Date / Time levofloxacin [From Levaquin] Allergy Swelling Verified 04/12/17 01:48 of Lip/Tongue/Throat prochlorperazine Allergy See Verified 04/12/17 01:48 [From Compazine] Comments Sulfa (Sulfonamide Allergy Rash Verified 04/12/17 01:48 Antibiotics) - Meds/Allergy Pre-op Review Medications Reviewed: Yes Allergies Reviewed: Yes Beta Blockers on Current Med List: Yes If Beta Blockers taken, Date/Time (Last Dose taken): has not been given during hospitalization, will give intraop prn Anesthesia Results - Labs 04/13/17 04:04 04/13/17 04:04 Anesthesia Exam Vital Signs/O2 Sat, Most Current Temp Pulse Resp BP Pulse Ox 98.5 F 107 15 132/80 98 04/13/17 08:24 04/13/17 11:44 04/13/17 11:44 04/13/17 11:44 04/13/17 11:44 NPO (# of Hours): >8 - HEENT Pupil (Motor): Pupils equal, EOMI Mallampati: III Teeth: Normal Oral Opening: Greater than 3 - BILLING TYPIST LOC: Oriented BILLING TYPIST Motor: Normal RUE, Normal LUE, Normal RLE, Normal LLE, Normal Face BILLING TYPIST Sensory: Normal: RUE, LUE, RLE, LLE, Face - Cardiac Rhythm: Regular - Pulmonary Breath Sounds: bilateral Clear Respiratory Effort: Symmetrical Anesthesia Assess/Plan ASA Score: 2 Modified Simran Scale for Level of Consciousness: Cooperative, oriented, and tranquil Anesthetic Plan: General Monitoring Plan: Standard Monitors Recovery Plan: PACU
[2017-04-13] MEDS ORDERED: *HR* FentaNYL (PF) 100 MCG/2 ML VIAL ONE (10:55)
[2017-04-13] MEDS ORDERED: Neostigmine Methylsulfate 3 MG/3 ML SYRINGE ONE (10:55)
[2017-04-13] MEDS ORDERED: *HR* Midazolam HCl 2 MG/2 ML VIAL ONE (10:55)
[2017-04-13] MEDS ORDERED: *HR* Propofol 200 MG/20 ML VIAL IVP ONE ×2 (10:55→12:55)
[2017-04-13] MEDS ORDERED: Lidocaine -MPF 2% 2 ML VIAL ONE (10:55)
[2017-04-13] MEDS ORDERED: *HR* Rocuronium Bromide 50 MG/5 ML VIAL ONE (10:55)
[2017-04-13] MEDS ORDERED: Ondansetron 4 MG/2 ML VIAL ONE (10:55)
--- NOTE | 2017-04-13 11:03 | Internal Med Progress Note ---
Date of Encounter: 04/13/17 Time of Encounter: 11:03 - Constitutional Vitals: Temp Pulse Resp BP Pulse Ox 98.5 F 87 15 119/73 98 04/13/17 08:24 04/13/17 08:24 04/13/17 08:24 04/13/17 08:24 04/13/17 08:24 General appearance: Present: A&O X 3, no acute distress, obese, answers questions appropriately - Head Head exam: Present: atraumatic, normocephalic - Eye Eye exam: Present: PERRL, conjuntiva pink, sclera anicteric Pupils: Present: PERRL - Neck Neck exam general surgery: Present: supple, trachea midline. Absent: lymphadenopathy - Respiratory Respiratory exam: Present: CTAB. Absent: accessory muscle use, rales, rhonchi, wheezes - Cardiovascular Cardiovascular exam: Present: RRR, +S1, +S2. Absent: diastolic murmur, gallop, rubs, systolic murmur - GI/Abdominal GI/Abdominal exam: Present: tenderness - Extremities Exam Extremities exam: Present: warm, radial pulses palpable and symmetrical. Absent : calf tenderness, cyanotic, pedal edema - Neurological Exam Neurological exam: Present: alert, CN II-XII intact, oriented X3, no focal deficits. Absent: pronater drift, facial droop, speech deficit - Skin Skin exam: Present: dry, intact Internal Medicine: Result - Labs CBC & Chem 7: 04/13/17 04:04 04/13/17 04:04 Labs: Short CBC 04/13/17 Range/Units 04:04 WBC 10.1 (4.3-11.1) K/mcL Hgb 12.1 D (11.5-15.4) g/dL Hct 38.5 (35.3-44.9) % Plt Count 240 (140-400) K/mcL Neutrophils # 7.1 (1.6-8.9) K/mcL BMP 04/13/17 04:04 Sodium 140 Potassium 4.2 Chloride 110 H Carbon Dioxide 23 BUN 13 Creatinine 0.75 Glucose 86 Calcium 8.5 L - Impressions Impressions Liver Scan Nuclear Medicine 04/13/17 06:00 IMPRESSION: Low gallbladder ejection fraction of only 35% suggests chronic cholecystitis. D/ / Emanuel Green MD / Emanuel Green MD Interpreting Provider: Emanuel Green MD Consult Discharge Plan - Plan Referrals: Ronna Dickens MD [Primary Care Provider] -
[2017-04-13] MEDS ORDERED: Lidocaine -MPF 4% 5 ML AMPUL ONE (11:35)
[2017-04-13] MEDS ORDERED: Scopolamine Patch 1.5 MG PATCH.TD72 ONE (11:42)
[2017-04-13] MEDS ORDERED: Lidocaine -MPF 1% 5 ML AMPUL ONE (11:43)
[2017-04-13] MEDS ORDERED: CefOXitin 2,000 MG VIAL ONE (12:10)
[2017-04-13] MEDS ORDERED: *HR* Succinylcholine 200 MG/10 ML VIAL IVP ONE (12:13)
[2017-04-13] MEDS ORDERED: Ketamine *HR* 500 MG/10 ML MDV ONE (12:14)
[2017-04-13] MEDS ORDERED: *HR* OxyCODONE Immed Rel 5 MG TABLET PO PRN (12:36)
[2017-04-13] MEDS ORDERED: MORPHINE SUL Oral CONC 10 MG/0.5 ML ORAL.SYG SL PRN (12:36)
[2017-04-13] MEDS ORDERED: *HR* Labetalol 100 MG/20 ML MDV IVP PRN (12:36)
[2017-04-13] MEDS ORDERED: *HR* Promethazine 25 MG/ML VIAL IVP PRN (12:36)
[2017-04-13] MEDS ORDERED: SUGAMMADEX SODIUM 500 MG/5 ML VIAL IV ONE (12:48)
[2017-04-13] MEDS ORDERED: Ketorolac 30 MG/ML VIAL ONE (12:55)
--- NOTE | 2017-04-13 13:07 | Operative Note ---
Date of procedure: 04/13/17 Pre-op diagnosis: biliary dyskinesia Post-op diagnosis: same Procedure: laparoscopic cholecystectomy Anesthesia: KALLIA Surgeon: Tristan Hdz Was there an hospital medical assistant present: No Estimated blood loss (cc): 5 Specimen: gallbladder and contents Condition: stable Disposition: PACU Procedure in Detail: Date of surgery: 04/13/17 After properly identifying the patient, the patient was brought to the operating room and placed in the supine position. After proper IV sedation was achieved followed by general endotracheal intubation, the patient's abdomen was prepped and draped in a normal sterile fashion. A timeout was performed noting the patient's name and type of procedure to be performed. 0.5% maricaine was used to infiltrate the dermis and subcutaneous tissue in the supraumbilical region followed by making an incision with an 11 blade scalpel down to the level of the rectus fascia. Additional maricaine was used to infiltrate the fascia and the rectus fascia was incised and the abdomen was entered and a 12 mm port was placed through the incision. A laparoscopic camera was placed through the port which showed no injury to the abdominal organs upon entry. A subxiphoid 5 mm port and a right subcostal margin 5 mm port were placed under direct camera visualization after each area was first infiltrated with maricaine. The patient was placed in a reverse Trendelenburg position. The right upper quadrant was examined and the gallbladder was noted to be distended. The gallbladder was iatrogenically opened and bilious fluid was removed to allow for decompression of the gallbladder. The gallbladder was then grasped and retracted superiorly with a nontraumatic grasper. The peritoneal covering overlying the infundibulum was carefully dissected away blunt dissection. The cystic duct was identified, clipped with laparoscopic clips, and incised with laparoscopic scissors. The cystic artery was likewise identified, clipped with laparoscopic clips, and incised laparoscopic scissors. The gallbladder was dissected away from the gallbladder fossa with Bovie cauterization. Once the gallbladder was dissected free it was removed from the abdomen via an Endobag. Reinspection of the right upper quadrant demonstrated maintenance of hemostasis and right upper quadrant was recently her [place] normal saline solution until the effluent was clear. All ports were removed from the abdomen after the abdomen was desufflated. The rectus fascia for the supraumbilical incision was reapproximated with a figure of eight 0 Vicryl suture. The subcutaneous tissue was reapproximated with interrupted 3-0 Vicryl sutures. The epidermal and dermal layers for the remaining incisions were closed with 4-0 Monocryl sutures. Needle, sponge, and instrument counts were correct 2 and the incisions were covered with Steri- Strips and Band-Aids. The patient was aroused from IV sedation, extubated in the operating room without complication, and transported to the recovery room in stable condition.
--- NOTE | 2017-04-13 13:51 | Discharge Summary ---
Orders not resulted at time of discharge: Pending orders 04/13/17 13:07 Surgical Pathology [PTH] Routine 04/14/17 04:00 CBC [Complete Blood Count] [HEME] AM 0400 Chem 7 [Basic Metabolic Panel] AM 0400 Date of Encounter: 04/13/17 Time of Encounter: 13:54 - Discharge Diagnosis (1) Biliary dyskinesia Priority: Primary Status: Resolved (2) Abdominal pain Priority: Primary Status: Resolved Qualifiers: Abdominal location: periumbilical Qualified Code(s): R10.33 - Periumbilical pain (3) Intractable nausea and vomiting Priority: Secondary Status: Resolved Qualifiers: Vomiting type: unspecified Qualified Code(s): R11.2 - Nausea with vomiting , unspecified (4) Anxiety Priority: Secondary Status: Chronic (5) HTN (hypertension) Priority: Secondary Status: Chronic Qualifiers: Hypertension type: essential hypertension Qualified Code(s): I10 - Essential (primary) hypertension General Surgery Exam Initial Vital Signs Temp Pulse Resp BP Pulse Ox 97.6 F 106 20 123/87 100 04/12/17 01:45 04/12/17 01:45 04/12/17 01:45 04/12/17 01:45 04/12/17 01:45 - Hospital Course Hospital course: Ms. Leon is a 37 year old female presented to the emergency department with acute onset of epigastric and right upper quadrant Edom pain with associated nausea and vomiting. The patient did have a CAT scan which shows possible small bowel obstruction versus ileus. The patient also had a ultrasound of her gallbladder which was normal. The patient's clinical picture was not consistent with a small bowel obstruction. She was further worked up for gallbladder disease with a HIDA scan. Her HIDA scan shows an ejection fraction of 35% and the patient did have recreation of symptoms. She was taken to the operating room with Dr. Hdz for laparoscopic cholecystectomy. We will plan for discharge to home when the patient meets discharge criteria including tolerating liquids without nausea or vomiting, vital signs are stable and afebrile, pain is well controlled, voiding and ambulating without difficulty. We will plan for outpatient follow-up in the surgical office in the next 10-14 days. - Time Spent with Patient Total time spent providing and/or coordinating discharge services: Less than 30 minutes - Discharge Medications Prescriptions: Ondansetron ODT [Zofran ODT] 4 mg SL Q6HR PRN #30 tab.rapdis PRN Reason: Nausea OxyCODONE/APAP 5/325 [Percocet 5/325 MG] 1 each PO Q6HR PRN 7 Days #28 tablet PRN Reason: Pain Ibuprofen [Motrin] 800 mg PO Q8HR #40 tablet Docusate [Colace] 100 mg PO DAILY PRN #30 capsule PRN Reason: Constipation Home Medications: Atenolol [Tenormin] 50 mg PO DAILY 06/30/15 [History] Methocarbamol [Robaxin] 500 mg PO DAILY 06/30/15 [History] BuPROPion XL (24 HR) [Wellbutrin Xl] 150 mg PO DAILY 04/12/17 [History] Venlafaxine XR (24 HR) [Effexor XR] 75 mg PO DAILY 04/12/17 [History] Venlafaxine XR (24 HR) [Effexor Xr] 37.5 mg PO DAILY 04/12/17 [History] Docusate [Colace] 100 mg PO DAILY PRN #30 capsule 04/13/17 [Rx] Ibuprofen [Motrin] 800 mg PO Q8HR #40 tablet 04/13/17 [Rx] Ondansetron ODT [Zofran ODT] 4 mg SL Q6HR PRN #30 tab.rapdis 04/13/17 [Rx] OxyCODONE/APAP 5/325 [Percocet 5/325 MG] 1 each PO Q6HR PRN 7 Days #28 tablet [Rx] Allergies/Adverse Reactions: 3 Allergy/AdvReac Type Severity Reaction Status Date / Time levofloxacin [From Levaquin] Allergy Swelling Verified 04/12/17 01:48 of Lip/Tongue/Throat prochlorperazine Allergy See Verified 04/12/17 01:48 [From Compazine] Comments Sulfa (Sulfonamide Allergy Rash Verified 04/12/17 01:48 Antibiotics) Date of admission: 04/12/17 07:51 Primary care physician: Ronna Dickens, Consults: 04/12/17 10:09 Consult to Surgery [CONS] Routine Consulting Provider: Surgery [facility] Reason for Consult: Acute SBO Time Notified: 10:10 Call Completed: Yes Discharging clinician: Kylie Ball Anticipated date of discharge: 04/13/17 Labs on day of discharge: Labs from last 24 hours 04/13/17 04/13/17 04/13/17 04:04 04:04 00:21 WBC 10.1 RBC 4.62 Hgb 12.1 D Hct 38.5 MCV 83.3 MCH 26.2 L MCHC 31.4 L RDW 14.4 Plt Count 240 MPV 11.1 Immature Gran % 1.3 Seg Neutrophils % 70.7 Lymphocytes % 21.0 Monocytes % 5.2 Eosinophils % 1.4 Basophils % 0.4 Neutrophils # 7.1 Lymphocytes # 2.1 Monocytes # 0.5 Eosinophils # 0.1 Basophils # 0.0 Nucleated RBCs/100 WBC 0.2 H Sodium 140 Potassium 4.2 Chloride 110 H Carbon Dioxide 23 BUN 13 Creatinine 0.75 Est GFR ( Amer) > 60 Est GFR (Non-Af Amer) > 60 BUN/Creatinine Ratio 17 Glucose 86 POC Glucose 97 H Calculated Osmolality 289 Calcium 8.5 L Phosphorus 3.0 Magnesium 2.0 04/12/17 04/12/17 16:21 11:58 WBC RBC Hgb Hct MCV MCH MCHC RDW Plt Count MPV Immature Gran % Seg Neutrophils % Lymphocytes % Monocytes % Eosinophils % Basophils % Neutrophils # Lymphocytes # Monocytes # Eosinophils # Basophils # Nucleated RBCs/100 WBC Sodium Potassium Chloride Carbon Dioxide BUN Creatinine Est GFR ( Amer) Est GFR (Non-Af Amer) BUN/Creatinine Ratio Glucose POC Glucose 100 H 121 H Calculated Osmolality Calcium Phosphorus Magnesium - Impressions ITS Impressions Liver Scan Nuclear Medicine 04/13/17 06:00 IMPRESSION: Low gallbladder ejection fraction of only 35% suggests chronic cholecystitis. D/ / Emanuel Green MD / Emanuel Green MD Interpreting Provider: Emanuel Green MD - Patient Status Disposition: Home, Self-Care Condition: Good Functional capacity at discharge: independent ambulation Overall status at discharge: patient is progressing back to baseline - Discharge Instructions Follow Up With: Ronna Dickens MD [Primary Care Provider] - Kylie Ball CNP [Advanced Practice Nurse] - 04/25/17 8:45 am (surgery follow-up) Additional Instructions: #1 may shower 04/14/17, no tub bath for 2 weeks #2 wash incisions with soap and water and pat dry daily #3 no lifting, pushing, pulling more than 15 pounds for the next 2 weeks #4 no driving until off narcotics for 24 hours and able to safely react in the car #5 may climb stairs - Diet and Activity Activity: other (See additional instructions above) Diet: advance to your usual diet - Attending Attestation For this encounter, I have reviewed the PRODUCTION ESTIMATOR or PA documentation, treatment plan, and medical decision making; and I have had face to face time with this patient.
[2017-04-13] MEDS ORDERED: *HR* OxyCODONE/APAP 5/325 TABLET PO PRN (14:09)
[2017-04-13] MEDS ORDERED: *HR* OxyCODONE/APAP 10/325 TABLET PO PRN (14:12)
--- NOTE | 2017-04-13 14:22 | Anesthesia Evaluation Post Op ---
Date of Encounter: 04/13/17 Time of Encounter: 14:22 - Vital Signs Vital Signs: Last Vital Signs Temp 97.6 F 04/13/17 14:05 Pulse 99 04/13/17 14:05 Resp 20 04/13/17 14:15 BP 126/68 04/13/17 14:15 Pulse Ox 94 04/13/17 14:15 - Lungs Lungs: Clear Ascult./Percussion - Airway Airway: Non-obstructed - Cardiovascular Regular Rate - Mental Status Mental Status: Alert & Oriented, Answers Appropriately - Pain Pain Scale: 3 - Nausea Vomiting Nausea Vomiting: Not Present - Hydration Hydration: NPO - Discharge PostOp Status: Transfer Patient to floor
[2017-04-13] MEDS ORDERED: *HR* HYDROcodone/Acet 10/325 mg TABLET PO PRN (14:56)
[2017-04-13] MEDS ORDERED: *HR* HYDROcodone/Acet 5/325 mg TABLET PO PRN (14:56)
[2017-04-13] MEDS ORDERED: Acetaminophen IV 1,000 MG/100 ML INFUS..BTL ONE (15:41)
[2017-04-13 16:29] VITALS: BP 122/82
== END 2017-04-13 17:41 | disposition home or self-care (01) ==
LOC: 2SOUTHHOLD 01:38 → EMEROO 01:38 → 2SOUTHHOLD 08:07 → 3ANU 16:52
PROVIDERS: ADMIT Internal Medicine; ATTEND Internal Medicine

== ENCOUNTER 2020-09-17 08:59 | Inpatient (IN) ==
[2020-09-17] MEDS ORDERED: Ondansetron 4 MG/2 ML VIAL IVP ONE (09:30)
[2020-09-17] MEDS ORDERED: Isovue-370 500 ML BOTTLE IVP ONE (09:39)
[2020-09-17 09:45] LABS: Hematocrit 40.2 % (35.3-44.9); Mean Corpuscular HGB Conc 32.3 g/dL (31.6-35.5); Mean Corpuscular Hemoglobin 25.8 pg (28.0-33.3); Mean Corpuscular Volume 79.8 fL (83.0-100.0); Mean Platelet Volume 10.5 fL (9.4-12.4); Monocytes # 0.3 K/mcL (0.0-1.3); Platelet Count 206 K/mcL (140-400); Red Blood Count 5.04 M/mcL (3.82-4.97); Red Cell Distribution Width 14.1 % (11.5-14.5); White Blood Count 7.7 K/mcL (4.3-11.1)
[2020-09-17 10:11] LABS: Anisocytosis 1+ (Not Present); Lymphocytes # 0.8 K/mcL (0.6-4.6); Neutrophils # 6.6 K/mcL (1.6-8.9); Platelet Estimate Normal (Normal); Reactive Lymphocytes Present (Not Present)
[2020-09-17 10:14] LABS: BUN/Creatinine Ratio 24 (6-26); Blood Urea Nitrogen 21 mg/dL (6-20); Carbon Dioxide 25 mEq/L (23-29); Chloride 100 mEq/L (98-107); Glucose 138 mg/dL (70-105); Osmolality,Calculated 289 (280-300); Potassium 3.6 mEq/L (3.5-5.1); Sodium 137 mEq/L (136-145); eGFR For African Americans > 60 (> 60); eGFR For Non-African Americans > 60 (> 60)
[2020-09-17 10:15] LABS: Troponin I < 0.03 ng/mL (< 0.04)
[2020-09-17 10:49] LABS: Influenza A PCR Negative (Negative); Influenza B PCR Negative (Negative); Resp. Syncytial Virus PCR Negative (Negative)
[2020-09-17 11:06] LABS: SARS-CoV-2 by PCR (In House) Positive (Negative)
[2020-09-17] MEDS ORDERED: Ondansetron 4 MG/2 ML VIAL IVP PRN (12:59)
[2020-09-17] MEDS ORDERED: Naloxone 0.4 MG/ML INJ IVP PRN (12:59)
[2020-09-17] MEDS ORDERED: Benzonatate 100 MG CAPSULE PO PRN (13:01)
[2020-09-17] MEDS: *HR* Heparin 5,000 UNIT/ML VIAL SQ SCH (17:06)
[2020-09-17] MEDS: Levalbuterol 1 PUFF INHALER IH SCH (23:54)
[2020-09-18] MEDS: Levalbuterol 1 PUFF INHALER IH SCH ×4 (03:52→22:58)
[2020-09-18 05:21] LABS: Basophils % 0.2 %; Hematocrit 36.5 % (35.3-44.9); Hemoglobin 11.7 g/dL (11.5-15.4); Immature Granulocytes % 1.1 % (0-4); Lymphocytes % 19.1 %; Mean Corpuscular HGB Conc 32.1 g/dL (31.6-35.5); Mean Corpuscular Hemoglobin 25.7 pg (28.0-33.3); Mean Corpuscular Volume 80.2 fL (83.0-100.0); Mean Platelet Volume 10.6 fL (9.4-12.4); Monocytes # 0.3 K/mcL (0.0-1.3); Monocytes % 5.6 %; Platelet Count 205 K/mcL (140-400); Red Blood Count 4.55 M/mcL (3.82-4.97); Red Cell Distribution Width 14.1 % (11.5-14.5); White Blood Count 5.4 K/mcL (4.3-11.1)
[2020-09-18 05:34] LABS: BUN/Creatinine Ratio 23 (6-26); Blood Urea Nitrogen 16 mg/dL (6-20); Calcium 8.5 mg/dL (8.6-10.3); Carbon Dioxide 28 mEq/L (23-29); Chloride 101 mEq/L (98-107); Glucose 96 mg/dL (70-105); Magnesium 1.9 mg/dL (1.6-2.6); Osmolality,Calculated 287 (280-300); Phosphorous 2.5 mg/dL (2.7-4.5); Potassium 3.8 mEq/L (3.5-5.1); Sodium 138 mEq/L (136-145); eGFR For African Americans > 60 (> 60); eGFR For Non-African Americans > 60 (> 60)
[2020-09-18] MEDS: *HR* Heparin 5,000 UNIT/ML VIAL SQ SCH ×2 (06:04→17:47)
[2020-09-18] MEDS ORDERED: *HR* LORazepam 1 MG TABLET PO PRN (11:51)
[2020-09-18] MEDS: methocarbamoL 750 MG TABLET PO SCH (19:54)
[2020-09-18] MEDS: Acetaminophen 325 MG TABLET PO PRN (20:21)
[2020-09-19] MEDS: Levalbuterol 1 PUFF INHALER IH SCH ×4 (03:31→22:30)
[2020-09-19] MEDS: *HR* Heparin 5,000 UNIT/ML VIAL SQ SCH ×2 (05:41→17:43)
[2020-09-19] MEDS: BuPROPion XL (24 HR) 150 MG TABLET PO SCH (08:06)
[2020-09-19] MEDS: atenoloL 50 MG TABLET PO SCH (08:06)
[2020-09-19] MEDS: FLUoxetine 20 MG CAPSULE PO SCH (08:06)
[2020-09-19] MEDS: methocarbamoL 750 MG TABLET PO SCH ×2 (08:08→19:48)
[2020-09-19] MEDS: Acetaminophen 325 MG TABLET PO PRN (20:10)
[2020-09-20 02:30] VITALS: BP 121/77; PULSE 72; TEMP 98.7
[2020-09-20] MEDS: Levalbuterol 1 PUFF INHALER IH SCH ×3 (04:33→16:12)
[2020-09-20] MEDS: *HR* Heparin 5,000 UNIT/ML VIAL SQ SCH (06:48)
[2020-09-20 09:31] LABS: Hematocrit 37.6 % (35.3-44.9); Hemoglobin 11.9 g/dL (11.5-15.4); Mean Corpuscular HGB Conc 31.6 g/dL (31.6-35.5); Mean Corpuscular Hemoglobin 25.4 pg (28.0-33.3); Mean Corpuscular Volume 80.3 fL (83.0-100.0); Mean Platelet Volume 9.8 fL (9.4-12.4); Platelet Count 268 K/mcL (140-400); Red Blood Count 4.68 M/mcL (3.82-4.97); Red Cell Distribution Width 13.7 % (11.5-14.5); White Blood Count 6.3 K/mcL (4.3-11.1)
[2020-09-20 09:50] LABS: BUN/Creatinine Ratio 31 (6-26); Blood Urea Nitrogen 22 mg/dL (6-20); Calcium 8.7 mg/dL (8.6-10.3); Carbon Dioxide 28 mEq/L (23-29); Chloride 102 mEq/L (98-107); Glucose 114 mg/dL (70-105); Osmolality,Calculated 290 (280-300); Potassium 3.6 mEq/L (3.5-5.1); Sodium 138 mEq/L (136-145); eGFR For African Americans > 60 (> 60); eGFR For Non-African Americans > 60 (> 60)
[2020-09-20 09:54] LABS: Lymphocytes # 1.6 K/mcL (0.6-4.6); Monocytes # 0.5 K/mcL (0.0-1.3); Neutrophils # 4.2 K/mcL (1.6-8.9)
[2020-09-20 09:55] LABS: Platelet Estimate Normal (Normal); Reactive Lymphocytes Present (Not Present)
[2020-09-20] MEDS: BuPROPion XL (24 HR) 150 MG TABLET PO SCH (11:52)
[2020-09-20] MEDS: atenoloL 50 MG TABLET PO SCH (11:52)
[2020-09-20] MEDS: FLUoxetine 20 MG CAPSULE PO SCH (11:52)
[2020-09-20] MEDS: methocarbamoL 750 MG TABLET PO SCH (11:54)
[2020-09-20 12:34] VITALS: O2SAT 92
== END 2020-09-20 17:23 | disposition left against medical advice (07) | DRG 177 ==
LOC: EMEROOARM 08:59 → 3BNU 08:59 → SUATTDRO 14:09 → 3BNU 15:08
PROVIDERS: ADMIT Internal Medicine; ATTEND Internal Medicine